=== PATIENT | female | born 1985 | race American Indian/Alaskan Native ===

== ENCOUNTER 2019-12-17 11:48 | Emergency (ER) | payer BC, OTHER ==
[~2019-12-17] VITALS: Ht 160 cm; Wt 81.7 kg
[2019-12-17] MEDS ORDERED: FAMCICLOVIR500 MG PO (12:08)
[2019-12-17] MEDS ORDERED: PREDNISONE20 MG PO (12:08)
== END 2019-12-17 12:24 | disposition home or self-care (01) ==
LOC: ED 11:48
DX: G51.0 Bell's palsy (principal)
CPT/HCPCS: 99283